=== PATIENT | female | born 1945 | race Caucasian/White ===

== ENCOUNTER 2017-01-23 10:20 | Emergency (ER) | payer SELFPAY ==
[2017-01-23 10:44] VITALS: BP 149/73
--- NOTE | 2017-01-23 10:56 | EDM.PDOC ---
[id number] [id number] WC: LEFT MIDDLE FINGER INJURY Time Seen by Provider: 01/23/17 10:45 Source: Reports: Patient, Family History Limitations: Reports: No limitations - History of Present Illness INITIAL COMMENTS - FREE TEXT/NARRATIVE: 71-year-old female with a right middle finger injury. Yesterday she accidentally dipped the tip of her finger in hot grease, but it was a gloved hand. She pulled her hand out quickly, snapped the glove off and ran her hand in cold water. Today her finger is ecchymotic and slightly swollen so her employer wanted it checked. It is not painful, there is no burn. Occurred When: yesterday Occurred Where: work Method of Injury: unknown Severity: mild Pain/Injury Location: Reports: upper extremity, right Associated Symptoms: Reports: denies other symptoms Allergies/ADRs: Allergies codeine Allergy (Verified 06/14/13 06:14) Airway Tightness procaine Allergy (Verified 09/16/14 13:57) Cannot Remember Home Medications: Ambulatory Orders Ca Cmb No.1/Vit D3/B-6/FA/B12 [Vitamin D3 1,000 Unit] 1 each PO DAILY 06/14/13 [ Confirmed 01/23/17] Estrogens, Conjugated [Premarin] 0.625 mg PO DAILY 06/14/13 [Confirmed 01/23/17] Hydrochlorothiazide [Hydrochlorothiazide] 25 mg PO DAILY 06/14/13 [Confirmed ] Multivitamin with Minerals [Multiple Vitamin] 1 tab PO DAILY 06/14/13 [ Confirmed 01/23/17] Omeprazole [Omeprazole] 20 mg PO DAILY 06/14/13 [Confirmed 01/23/17] PARoxetine HCl [Paroxetine HCl] 20 mg PO DAILY 06/14/13 [Confirmed 01/23/17] Simvastatin [Simvastatin] 40 mg PO DAILY 06/14/13 [Confirmed 01/23/17] Past Medical History - Past Health History Medical/Surgical History: Denies Medical/Surgical History 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 Trauma Exam - Physical Exam Exam: See Below Exam Limited By: No limitations General Appearance: Reports: alert, no apparent distress Head: Reports: atraumatic Respiratory Exam: Reports: no respiratory distress Extremities: Reports: other (Exam is otherwise limited to the right hand. She has some slight swelling and ecchymosis to the proximal aspect of the right middle finger, but full range of motion and no tenderness to palpation. Joints are nontender, there is no burn) Course - Vital Signs Last Recorded V/S: Last Vital Signs Temp 96.1 F 01/23/17 10:43 Pulse 76 01/23/17 10:43 Resp 15 01/23/17 10:43 BP 149/73 H 01/23/17 10:43 Pulse Ox 96 01/23/17 10:43 - Re-Assessments/Exams Free Text/Narrative Re-Assessment/Exam: 01/23/17 10:54 This patient simply has a contusion or hematoma under the skin likely from snapping her glove off rapidly. No treatment is needed. Departure - Departure Time of Disposition: 11:39 Disposition: Home, Self-Care 01 Condition: good Clinical Impression: Contusion of finger of right hand Qualifiers: Encounter type: initial encounter Finger: middle finger Damage to nail status: without damage Qualified Code(s): S60.031A - Contusion of right middle finger without damage to nail, initial encounter Instructions: Hand Contusion Referrals: Armand Garcia MD [Primary Care Provider] - Forms: ED Department Discharge Care Plan Goals: Elevate the hand and cool compresses may help, no limitation of activity as needed. Recheck at any time if you feel you are not healing satisfactorily.
== END 2017-01-23 11:10 | disposition home or self-care (01) ==
LOC: JP.ED 10:20
DX: S60.031A Contusion of right middle finger without damage to nail, initial encounter (principal); Z90.49 Acquired absence of other specified parts of digestive tract; Z90.710 Acquired absence of both cervix and uterus; Z90.5 Acquired absence of kidney; Z79.899 Other long term (current) drug therapy; Z88.5 Allergy status to narcotic agent; Z88.8 Allergy status to other drugs, medicaments and biological substances; X19.XXXA Contact with other heat and hot substances, initial encounter
CPT/HCPCS: 99282; 99283

== ENCOUNTER 2017-05-26 16:04 | Inpatient (IN) | payer MEDICARE ==
[2017-05-26] MEDS ORDERED: HYDROmorphone 0.5 MG/0.5 ML Syringe IVPUSH ONE (16:53)
--- NOTE | 2017-05-26 16:56 | EDM.PDOC ---
ED HPI GENERAL MEDICAL PROBLEM - General Chief Complaint: Abdominal Pain Stated Complaint: FEVER Time Seen by Provider: 05/26/17 16:45 Source of Information: Reports: Patient History Limitations: Reports: No Limitations - History of Present Illness INITIAL COMMENTS - FREE TEXT/NARRATIVE: 71 yo female with RLQ abdominal pain that began yesterday and has worsened. Bowels normal. No urinary sx's. No nausea. Still has her appendix. 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 (Aleve x 2 2 hrs ago.) Right Lower Abdomen Pain Score (Numeric/FACES): 3 - Related Data Allergies Allergy/AdvReac Type Severity Reaction Status Date / Time codeine Allergy Airway Verified 06/14/13 06:14 Tightness procaine Allergy Cannot Verified 09/16/14 13:57 Remember Home Meds: Home Meds Ca Cmb No.1/Vit D3/B-6/FA/B12 [Vitamin D3 1,000 Unit] 1 each PO DAILY 06/14/13 [ History] Estrogens, Conjugated [Premarin] 0.625 mg PO DAILY 06/14/13 [History] Hydrochlorothiazide [Hydrochlorothiazide] 25 mg PO DAILY 06/14/13 [History] Multivitamin with Minerals [Multiple Vitamin] 1 tab PO DAILY 06/14/13 [History] Omeprazole [Omeprazole] 20 mg PO DAILY 06/14/13 [History] PARoxetine HCl [Paroxetine HCl] 20 mg PO DAILY 06/14/13 [History] Simvastatin [Simvastatin] 40 mg PO DAILY 06/14/13 [History] Aspirin 81 mg PO DAILY 05/26/17 [History] Potassium Chloride 10 meq PO BID 05/26/17 [History] Past Medical History - Past Health History Medical/Surgical History: Denies Medical/Surgical History Cardiovascular History: Reports: Hypertension 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: - Infectious Disease History Infectious Disease History: Reports: Chicken Pox, Measles, Mumps - Past Surgical History GI Surgical History: Reports: Cholecystectomy Female Surgical History: Reports: Hysterectomy, Nephrectomy Social & Family History - Tobacco Use Smoking Status *Q: Never Smoker Second Hand Smoke Exposure: Yes - Caffeine Use Caffeine Use: Reports: Coffee - Alcohol Use Days Per Week of Alcohol Use: 0 - Recreational Drug Use Recreational Drug Use: No ED ROS GENERAL - Review of Systems Review Of Systems: See Below Constitutional: Reports: No Symptoms HEENT: Reports: No Symptoms Respiratory: Reports: No Symptoms Cardiovascular: Reports: No Symptoms Endocrine: Reports: No Symptoms GI/Abdominal: Reports: Abdominal Pain, Decreased Appetite. Denies: Black Stool , Bloody Stool, Constipation, Diarrhea, Distension, Hematochezia, Melena, Nausea , Vomiting : Reports: No Symptoms Musculoskeletal: Reports: No Symptoms Skin: Reports: No Symptoms Neurological: Reports: No Symptoms ED EXAM, GI/ABD - Physical Exam Exam: See Below Exam Limited By: No Limitations General Appearance: Alert, WD/WN, No Apparent Distress Eyes: Bilateral: Normal Appearance Ears: Normal External Exam, Normal Canal, Hearing Grossly Normal Nose: Normal Inspection, Normal Mucosa, No Blood Throat/Mouth: Normal Inspection, Normal Lips, Normal Oropharynx, Normal Voice Head: Atraumatic, Normocephalic Neck: Normal Inspection Respiratory/Chest: No Respiratory Distress, Lungs Clear, Normal Breath Sounds, No Accessory Muscle Use Cardiovascular: Regular Rate, Rhythm, No Edema GI/Abdominal Exam: No Distention, Guarding, Tender. No: Rebound Back Exam: Normal Inspection, Full Range of Motion. No: CVA Tenderness (R), CVA Tenderness (L) Extremities: Normal Inspection, Normal Range of Motion, Non-Tender, No Pedal Edema Neurological: Alert, Oriented, CN II-XII Intact, Normal Cognition, No Motor/ Sensory Deficits Psychiatric: Normal Affect, Normal Mood Skin Exam: Warm, Dry, Intact, Normal Color, No Rash Lymphatic: No Adenopathy Course - Vital Signs Text/Narrative:: Surgery notified @ 1800h Last Recorded V/S: Last Vital Signs Temp 36.1 C 05/26/17 16:35 Pulse 87 05/26/17 16:35 Resp 18 05/26/17 16:35 BP 134/80 05/26/17 16:35 Pulse Ox 94 L 05/26/17 16:35 - Orders/Labs/Meds Orders: Active Orders 24 hr Category Date Time Status Abdomen Pelvis w Cont [CT] Stat Exams 05/26/17 17:00 Ordered UA W/MICROSCOPIC [URIN] Stat Lab 05/26/17 17:49 Received Iopamidol [Isovue-300 (61%)] Med 05/26/17 17:06 Active 100 ml IV . DIRECTED PRN Lactated Ringers [Ringers, Lactated] 1,000 ml Med 05/26/17 17:00 Active IV ASDIRECTED Sodium Chloride 0.9% [Normal Saline] 78 ml Med 05/26/17 17:15 Active IV ASDIRECTED Medication Orders Lactated Ringer's (Ringers, Lactated) 1,000 mls @ 150 mls/hr IV ASDIRECTED APOORVA Last Admin: 05/26/17 17:13 Dose: 150 mls/hr Sodium Chloride (Normal Saline) 78 mls @ 3 mls/sec IV ASDIRECTED APOORVA Iopamidol (Isovue-300 (61%)) 100 ml IV . DIRECTED PRN PRN Reason: RADIOLOGY EXAM Stop: 05/27/17 17:07 Labs: Laboratory Tests 05/26/17 05/26/17 Range/Units 17:08 17:08 WBC 20.2 H (4.5-11.0) K/uL RBC 5.61 H (3.30-5.50) M/uL Hgb 15.7 H (12.0-15.0) g/dL Hct 46.5 (36.0-48.0) % MCV 83 (80-98) fL MCH 28 (27-31) pg MCHC 34 (32-36) % Plt Count 268 (150-400) K/uL Sodium 136 L (140-148) mmol/L Potassium 3.8 (3.6-5.2) mmol/L Chloride 96 L (100-108) mmol/L Carbon Dioxide 30 (21-32) mmol/L Anion Gap 13.8 (5.0-14.0) mmol/L BUN 12 (7-18) mg/dL Creatinine 1.3 H (0.6-1.0) mg/dL Est Cr Clr Drug Dosing 32.82 mL/min Estimated GFR (MDRD) 40 L (>60) Glucose 151 H (74-106) mg/dL Calcium 9.0 (8.5-10.1) mg/dL Total Bilirubin 0.8 (0.2-1.0) mg/dL AST 34 (15-37) U/L ALT 23 (12-78) U/L Alkaline Phosphatase 104 (46-116) U/L Total Protein 7.9 (6.4-8.2) g/dL Albumin 3.7 (3.4-5.0) g/dL Globulin 4.2 H (2.3-3.5) g/dL Albumin/Globulin Ratio 0.9 L (1.2-2.2) Meds: Medications Generic Name Dose Route Start Last Admin Trade Name Freq PRN Reason Stop Dose Admin Lactated Ringer's 1,000 mls @ 150 mls/hr 05/26/17 17:00 05/26/17 17:13 Ringers, Lactated IV 150 mls/hr ASDIRECTED APOORVA Administration Sodium Chloride 78 mls @ 3 mls/sec 05/26/17 17:15 Normal Saline IV ASDIRECTED APOORVA Iopamidol 100 ml 05/26/17 17:06 Isovue-300 (61%) IV 05/27/17 17:07 . DIRECTED PRN RADIOLOGY EXAM Discontinued Medications Generic Name Dose Route Start Last Admin Trade Name Freq PRN Reason Stop Dose Admin Hydromorphone HCl 0.5 mg 05/26/17 16:53 05/26/17 17:22 Dilaudid IVPUSH 05/26/17 16:54 0.5 mg ONETIME ONE Administration Ondansetron HCl 4 mg 05/26/17 17:14 05/26/17 17:19 Zofran IVPUSH 05/26/17 17:15 4 mg ONETIME ONE Administration Sodium Chloride 10 ml 05/26/17 17:06 05/26/17 17:22 Saline Flush FLUSH 05/26/17 17:07 10 ml ONETIME ONE Administration Departure - Departure Time of Disposition: 18:00 Disposition: Still A Patient 30 Condition: Fair (no cyanosis) Clinical Impression: RLQ abdominal pain - Discharge Information Referrals: Armand Garcia MD [Primary Care Provider] - Forms: ED Department Discharge - My Orders Last 24 Hours: My Active Orders 05/26/17 17:00 Abdomen Pelvis w Cont [CT] Stat Lactated Ringers [Ringers, Lactated] 1,000 ml IV ASDIRECTED 05/26/17 17:06 Iopamidol [Isovue-300 (61%)] 100 ml IV . DIRECTED PRN 05/26/17 17:15 Sodium Chloride 0.9% [Normal Saline] 78 ml IV ASDIRECTED 05/26/17 17:49 UA W/MICROSCOPIC [URIN] Stat - Assessment/Plan Last 24 Hours: My Active Orders 05/26/17 17:00 Abdomen Pelvis w Cont [CT] Stat Lactated Ringers [Ringers, Lactated] 1,000 ml IV ASDIRECTED 05/26/17 17:06 Iopamidol [Isovue-300 (61%)] 100 ml IV . DIRECTED PRN 05/26/17 17:15 Sodium Chloride 0.9% [Normal Saline] 78 ml IV ASDIRECTED 05/26/17 17:49 UA W/MICROSCOPIC [URIN] Stat
[2017-05-26] MEDS ORDERED: Lactated Ringers 1,000 ML IV SCH ×2 (17:00→21:15)
[2017-05-26] MEDS ORDERED: Iopamidol 612 MG/ML 100 ML Bottle IV PRN (17:06)
[2017-05-26] MEDS ORDERED: Ondansetron 4 MG/2 ML SDV IVPUSH ONE (17:14)
[2017-05-26] MEDS: Sodium Chloride 0.9% 10 ML Syringe FLUSH ONE ×2 (17:22→18:50)
[2017-05-26] MEDS ORDERED: Lactated Ringers 1,000 ML IV ONE (17:57)
[2017-05-26] MEDS ORDERED: Scopolamine 1.5 MG Transdermal Patch TRDERM PRN (21:29)
[2017-05-26] MEDS ORDERED: Promethazine 12.5 MG in Sodium Chloride 0.9% 50 ML IV PRN (21:31)
[2017-05-26] MEDS ORDERED: diphenhydrAMINE 50 MG/ML SDV IVPUSH PRN (21:35)
[2017-05-26] MEDS ORDERED: Morphine 2 MG/ML Syringe IVPUSH PRN (21:38)
[2017-05-26] MEDS ORDERED: fentaNYL 100 MCG/2 ML SDV IVPUSH PRN (21:39)
[2017-05-26] MEDS: Sodium Chloride 0.9% 1,000 ML IV SCH (22:23)
[2017-05-26] MEDS: Piperacillin/Tazobactam 4.5 GM in Sodium Chloride 0.9% 100 ML IV SCH (22:58)
[2017-05-27] MEDS: Sodium Chloride 0.9% 1,000 ML IV SCH (05:59)
[2017-05-27] MEDS: Piperacillin/Tazobactam 4.5 GM in Sodium Chloride 0.9% 100 ML IV SCH (06:41)
[2017-05-27] MEDS ORDERED: Potassium Chloride 20 MEQ in Premix Bag 1 BAG IV SCH (08:00)
[2017-05-27] MEDS ORDERED: Dexamethasone 4 MG/ML SDV ONE (08:47)
[2017-05-27] MEDS ORDERED: Ondansetron 4 MG/2 ML SDV ONE (08:47)
[2017-05-27] MEDS ORDERED: Neostigmine Methylsulfate 1 MG/ML 5 ML Syringe ONE (08:47)
[2017-05-27] MEDS ORDERED: Succinylcholine 200 MG/10 ML MDV ONE (08:47)
[2017-05-27] MEDS ORDERED: Propofol 200 MG/20 ML SDV ONE (08:47)
[2017-05-27] MEDS ORDERED: Glycopyrrolate 0.2 MG/ML 5 ML MDV ONE (08:47)
[2017-05-27] MEDS ORDERED: Rocuronium 50 MG/5 ML Vial ONE (08:47)
[2017-05-27] MEDS: Potassium Chloride 20 MEQ, Lidocaine 1% 2 ML in Sodium Chloride 0.9% 100 ML IV SCH ×3 (08:51→17:49)
[2017-05-27] MEDS: SCOPOLAMINE PATCH CHECK TOP SCH (11:31)
[2017-05-27] MEDS ORDERED: Lidocaine 1% with EPINEPHrine 1:100,000 50 ML MDV ONE (11:31)
[2017-05-27] MEDS ORDERED: Bupivacaine 0.5% 50 ML MDV ONE (11:31)
[2017-05-27] MEDS ORDERED: cefOXitin 2 GM Vial ONE (11:32)
[2017-05-27] MEDS ORDERED: Lactated Ringers 1,000 ML ONE (11:44)
[2017-05-27] MEDS ORDERED: hydrOXYzine HCl 100 MG/2 ML SDV IM PRN (12:21)
[2017-05-27] MEDS ORDERED: D5 1/2 NS w/ 20 mEq/L KCl 1,000 ML IV SCH ×4 (12:45→22:00)
[2017-05-27] MEDS: Ondansetron 4 MG/2 ML SDV IVPUSH PRN ×2 (13:02→22:03)
[2017-05-27] MEDS ORDERED: LORazepam 2 MG/ML MDV ONE (13:27)
[2017-05-27] MEDS: LORazepam 2 MG/ML MDV IVPUSH PRN ×2 (13:29→16:16)
[2017-05-27] MEDS: Piperacillin/Tazobactam/Dext 4.5 GM in Premix Bag 1 BAG IV SCH ×2 (14:30→21:26)
[2017-05-27] MEDS ORDERED: Lactated Ringers 500 ML IV ONE (17:15)
[2017-05-28] MEDS: Piperacillin/Tazobactam/Dext 4.5 GM in Premix Bag 1 BAG IV SCH ×3 (05:44→21:05)
[2017-05-28] MEDS: Ondansetron 4 MG/2 ML SDV IVPUSH PRN ×2 (05:44→13:33)
[2017-05-28] MEDS ORDERED: D5 1/2 NS w/ 20 mEq/L KCl 1,000 ML IV SCH (07:15)
[2017-05-28] MEDS: SCOPOLAMINE PATCH CHECK TOP SCH (13:48)
[2017-05-28] MEDS ORDERED: Ondansetron 4 MG Tab.DIS PO PRN (18:24)
[2017-05-28] MEDS ORDERED: Simvastatin 20 MG Tab PO SCH (21:00)
[2017-05-28] MEDS: PARoxetine 20 MG Tab PO SCH (21:06)
[2017-05-29] MEDS: Piperacillin/Tazobactam/Dext 4.5 GM in Premix Bag 1 BAG IV SCH (05:58)
[2017-05-29 07:47] VITALS: BP 154/88
[2017-05-29] MEDS: PARoxetine 20 MG Tab PO SCH (08:56)
[2017-05-29] MEDS: SCOPOLAMINE PATCH CHECK TOP SCH (08:56)
[2017-05-29] MEDS ORDERED: Potassium Chloride 10 MEQ Cap.ER PO SCH (09:00)
[2017-05-29] MEDS ORDERED: Aspirin 81 MG Tab.EC PO SCH ×2 (09:00→21:00)
[2017-05-29] MEDS ORDERED: Hydrochlorothiazide 25 MG Tab PO SCH (09:00)
--- NOTE | 2017-05-29 11:31 | PN ---
DATE OF SERVICE: 05/29/2017 SUBJECTIVE: The patient is doing well. Pain is well controlled. No nausea, vomiting, shortness of breath, or chest pain. OBJECTIVE: VITAL SIGNS: Temperature 98.7, blood pressure 154/88, respirations 16, and 92% on room air. CARDIOVASCULAR: Regular rhythm and rate. RESPIRATORY: Lungs clear to auscultation bilaterally. ABDOMEN: Bowel sounds positive. EXTREMITIES: Full range of motion. Incision healing well. ASSESSMENT: Status post appendectomy. PLAN: The patient will be discharged today. We discussed diet, activity, followup, signs and symptoms, complications, and the role of the emergency room. The patient was discharged with Augmentin for antibiotics and [place] for pain. Rufino Dawkins MD /[id number]
[2017-05-29] MEDS ORDERED: PARoxetine 20 MG Tab PO SCH (21:00)
--- NOTE | 2017-05-30 08:24 | OR ---
DATE OF PROCEDURE: 05/27/2017 PREOPERATIVE DIAGNOSIS: Acute appendicitis. POSTOPERATIVE DIAGNOSIS: Acute perforated appendicitis. PROCEDURE: Laparoscopic appendectomy. ANESTHESIA: General endotracheal. INDICATIONS: This 71-year-old white female tells me that yesterday she noted onset of abdominal pain and it was in the right lower quadrant. This was severe enough that it caused her to come into the emergency room last night. She was found to be tender in the right lower quadrant. She was afebrile at that time, but did develop a fever of 100.7. Her white count was in the 20,000 range. CAT scan of the abdomen and pelvis was consistent with acute nonperforated appendicitis. She was admitted, given IV antibiotic. She wanted me to do her surgery, so I counseled her for a laparoscopic appendectomy including risks and alternatives, and she gave her informed consent to proceed. DESCRIPTION OF PROCEDURE: After adequate general endotracheal anesthesia was obtained, a Man catheter was placed. Her abdomen was prepped and draped in the usual sterile fashion. The leg compression stockings were in place and used during the entire procedure. Time-out was held. An infraumbilical semicircular incision was made. Under direct vision, a 12-mm port was introduced in the abdomen through this incision. The camera was introduced into the abdomen and the abdomen was insufflated to a pressure of 20 mmHg with carbon dioxide. No evidence of intraabdominal injury was seen. Under direct vision, 12-mm ports were placed in the right upper and left lower quadrants. There were some adhesions to the anterior abdominal wall from her prior multiple surgeries. These were bluntly and sharply dissected free. We were then able to reach the right lower quadrant. There was small bowel adherent in this area. This was carefully dissected free to reveal a walled-off perforated appendicitis. Some tyson-colored material was obtained which was aspirated free. The base of the appendix was divided with the endoscopic TESS using a blue load. The mesoappendix was divided with the endoscopic TESS using a white load. The appendix was then placed in a sample retrieval bag and elevated up through the anterior abdominal wall via the right upper quadrant port site. It was delivered from the field. There was some necrotic tissue in the right lower quadrant which was sharply dissected free and removed. All then looked well. We did irrigate the right lower quadrant and suction it dry. No other abnormalities were noted. The fascial closure device was used to place 0 Vicryl stitches in the right upper and left lower quadrant fascial defects. These were not both tied down until they were both placed, they were then tied down. The infraumbilical port was removed with a [id number] stitch of 0 Vicryl and used to close this fascial defect. Before tieing it down, we tried to evacuate as much CO2 as we could from the abdomen. This was then tied down. Lidocaine 1% with epinephrine in a 50:50 mix with 0.5% Marcaine was infiltrated about all incisions. 4-0 Vicryl using a subcuticular stitch was placed to approximate the skin in the incisions. Dermabond was applied. The anesthesia was reversed. She was extubated and brought to recovery room in good condition. Vazquez Hand MD /[id number] MTDD
--- NOTE | 2017-06-02 09:27 | PN ---
DATE OF SERVICE: 05/28/2017 SUBJECTIVE: The patient is doing well. Pain is well controlled. No nausea, vomiting, shortness of breath, or chest pain. OBJECTIVE: VITAL SIGNS: Stable. CARDIOVASCULAR: Regular rhythm and rate. RESPIRATORY: Lungs clear to consultation bilaterally. ABDOMEN: Incisions, no sign of cellulitis. LABORATORY DATA: Show elevated white count of 17,000. ASSESSMENT: Status post appendectomy. PLAN: We will continue IV antibiotics at this time. Continue to work on diet and activity. Rufino Dawkins MD /[id number]
--- NOTE | 2017-06-03 09:22 | PCM.DCSUM1 ---
Discharge Summary - Hospital Course Free Text/Narrative:: This 71 year old white female was admitted on the evening of May 26, 2017 with less than 24 hours of abdominal pain and acute appendicitis. She was taken to the OR on the morning of May 27, 2017 where when dissecting the bowel of the appendix it was noted to be perforated (the bowel had sealed off the appendix). The was on Zosyn which was continued post operatively. No drain was placed. By the second post operative day she was afebrile, eating and wanted to go home. Her WBC was down to about 12 K from 20K. She was discharged home on the second post operative day on Augmentin. Pathology showed perforation and a sessile serrated adenoma at the proximal margin of the resection. Brief History: See above narrative. - Discharge Data Discharge Date: 05/29/17 Discharge Disposition: Home, Self-Care 01 Condition: Good - Patient Instructions Diet: Usual Diet as Tolerated Activity: No Lifting Over 10 Pounds Showering/Bathing: January Shower Notify Provider of: Fever, Increased Pain, Swelling and Redness, Drainage, Nausea and/or Vomiting - Discharge Plan Home Medications: Home Meds Ca Cmb No.1/Vit D3/B-6/FA/B12 [Vitamin D3 1,000 Unit] 1 each PO DAILY 06/14/13 [ History] Estrogens, Conjugated [Premarin] 0.625 mg PO DAILY 06/14/13 [History] Hydrochlorothiazide [Hydrochlorothiazide] 25 mg PO DAILY 06/14/13 [History] Multivitamin with Minerals [Multiple Vitamin] 1 tab PO DAILY 06/14/13 [History] Omeprazole [Omeprazole] 20 mg PO DAILY 06/14/13 [History] PARoxetine HCl [Paroxetine HCl] 20 mg PO DAILY 06/14/13 [History] Simvastatin [Simvastatin] 40 mg PO DAILY 06/14/13 [History] Aspirin 81 mg PO DAILY 05/26/17 [History] Potassium Chloride 10 meq PO BID 05/26/17 [History] Forms: ED Department Discharge Referrals: Armand Garica MD [Primary Care Provider] - ([facility] 7-14 days) - Discharge Summary/Plan Comment DC Time >30 min.: Yes Discharge Summary/Plan Comment: See above narrative. - Patient Data Vitals - Most Recent: Last Vital Signs Temp 98.7 F 05/29/17 07:00 Pulse 79 05/29/17 07:00 Resp 16 05/29/17 07:00 BP 154/88 H 05/29/17 07:00 Pulse Ox 92 L 05/29/17 07:00 Weight - Most Recent: 162 lb 4.163 oz Med Orders - Current: Current Medications Discontinued Medications Aspirin (Halfprin) 81 mg PO DAILY [facility] Last Admin: 05/29/17 08:56 Dose: Not Given Aspirin (Halfprin) 81 mg PO BEDTIME [facility] Bupivacaine HCl (Marcaine 0.5%) Confirm Administered Dose 50 ml .ROUTE .STK-MED ONE Stop: 05/27/17 11:32 Last Admin: 05/27/17 11:50 Dose: 10 ml Cefoxitin Sodium (Mefoxin) Confirm Administered Dose 2 gm .ROUTE .STK-MED ONE Stop: 05/27/17 11:33 Dexamethasone (Dexamethasone) Confirm Administered Dose 4 mg .ROUTE .STK-MED ONE Stop: 05/27/17 08:48 Diphenhydramine HCl (Benadryl) 25 - 50 mg IVPUSH Q4H PRN PRN Reason: Itching Fentanyl (Sublimaze) 10 - 30 mcg IVPUSH Q1H PRN PRN Reason: Pain (severe 7-10) Fentanyl Citrate (Fentanyl) Confirm Administered Dose 500 mcg .ROUTE .STK-MED ONE Stop: 05/27/17 08:48 Glycopyrrolate (Robinul) Confirm Administered Dose 1 mg .ROUTE .STK-MED ONE Stop: 05/27/17 08:48 Hydrochlorothiazide (Hydrochlorothiazide) 25 mg PO DAILY [facility] Last Admin: 05/29/17 08:52 Dose: 25 mg Hydromorphone HCl (Dilaudid) 0.5 mg IVPUSH ONETIME ONE Stop: 05/26/17 16:54 Last Admin: 05/26/17 17:22 Dose: 0.5 mg Hydroxyzine HCl (Vistaril) 50 mg IM Q4H PRN PRN Reason: Nausea Lactated Ringer's (Ringers, Lactated) 1,000 mls @ 150 mls/hr IV ASDIRECTED [facility] Last Admin: 05/26/17 17:13 Dose: 150 mls/hr Sodium Chloride (Normal Saline) 78 mls @ 3 mls/sec IV ASDIRECTED [facility] Last Admin: 05/26/17 18:49 Dose: 3 mls/sec Lactated Ringer's (Ringers, Lactated) 1,000 mls @ 1,000 mls/hr IV BOLUS ONE Stop: 05/26/17 18:56 Last Admin: 05/26/17 18:07 Dose: 1,000 mls/hr Lactated Ringer's (Ringers, Lactated) 1,000 mls @ 250 mls/hr IV ASDIRECTED [facility] Sodium Chloride (Normal Saline) 1,000 mls @ 125 mls/hr IV ASDIRECTED [facility] Last Admin: 05/27/17 05:59 Dose: 125 mls/hr Promethazine HCl 12.5 mg/ (Sodium Chloride) 50.5 mls @ 200 mls/hr IV Q8H PRN PRN Reason: Nausea/Vomiting Piperacillin Sod/Tazobactam (Sod 4.5 gm/ Sodium Chloride) 100 mls @ 200 mls/hr IV Q8H [facility] Last Admin: 05/27/17 06:41 Dose: 200 mls/hr Piperacillin/Tazobactam/ (Dextrose 4.5 gm/ Premix) 100 mls @ 200 mls/hr IV Q8H [facility] Last Admin: 05/29/17 05:58 Dose: 200 mls/hr Potassium Chloride 20 meq/Lidocaine HCl 2 ml/ Sodium Chloride 112 mls @ 56 mls/ hr IV Q2H [facility] Stop: 05/27/17 14:59 Last Admin: 05/27/17 17:49 Dose: 56 mls/hr Lactated Ringer's (Ringers, Lactated) Confirm Administered Dose 1,000 mls @ as directed .ROUTE .STK-MED ONE Stop: 05/27/17 11:45 Potassium Chloride/Dextrose/Sod Cl (D5 1/2 Ns W/ 20 Meq/L Kcl) 1,000 mls @ 125 mls/hr IV ASDIRECTED [facility] Last Infusion: 05/27/17 17:28 Dose: 250 mls/hr Potassium Chloride/Dextrose/Sod Cl (D5 1/2 Ns W/ 20 Meq/L Kcl) 1,000 mls @ 250 mls/hr IV ASDIRECTED [facility] Stop: 05/27/17 22:00 Potassium Chloride/Dextrose/Sod Cl (D5 1/2 Ns W/ 20 Meq/L Kcl) 1,000 mls @ 125 mls/hr IV ASDIRECTED [facility] Stop: 05/28/17 04:00 Last Admin: 05/27/17 22:14 Dose: 125 mls/hr Lactated Ringer's (Ringers, Lactated) 500 mls @ 500 mls/hr IV BOLUS ONE Stop: 05/27/17 18:14 Last Admin: 05/27/17 17:28 Dose: 500 mls/hr Potassium Chloride/Dextrose/Sod Cl (D5 1/2 Ns W/ 20 Meq/L Kcl) 1,000 mls @ 250 mls/hr IV ASDIRECTED [facility] Stop: 05/27/17 22:00 Last Admin: 05/27/17 20:38 Dose: 250 mls/hr Potassium Chloride/Dextrose/Sod Cl (D5 1/2 Ns W/ 20 Meq/L Kcl) 1,000 mls @ 125 mls/hr IV ASDIRECTED [facility] Iopamidol (Isovue-300 (61%)) 100 ml IV . DIRECTED PRN PRN Reason: RADIOLOGY EXAM Stop: 05/27/17 17:07 Last Admin: 05/26/17 18:49 Dose: 100 ml Lidocaine/Epinephrine (Xylocaine 1% With Epinephrine 1:100,000) Confirm Administered Dose 50 ml .ROUTE .STK-MED ONE Stop: 05/27/17 11:32 Last Admin: 05/27/17 11:50 Dose: 10 ml Lorazepam (Ativan) 1 mg IVPUSH Q1H PRN PRN Reason: Anxiety Last Admin: 05/27/17 16:16 Dose: 1 mg Lorazepam (Ativan) Confirm Administered Dose 2 mg .ROUTE .STK-MED ONE Stop: 05/27/17 13:28 Last Admin: 05/27/17 14:07 Dose: Not Given Morphine Sulfate (Morphine) 1 - 3 mg IVPUSH Q1H PRN PRN Reason: Pain Neostigmine Methylsulfate (Neostigmine) Confirm Administered Dose 5 mg .ROUTE .STK-MED ONE Stop: 05/27/17 08:48 Scopolamine Patch (Check) 1 each TOP DAILY [facility] Last Admin: 05/29/17 08:56 Dose: Not Given Ondansetron HCl (Zofran) 4 mg IVPUSH ONETIME ONE Stop: 05/26/17 17:15 Last Admin: 05/26/17 17:19 Dose: 4 mg Ondansetron HCl (Zofran) 4 mg IVPUSH Q8H PRN PRN Reason: Nausea/Vomiting Last Admin: 05/28/17 13:33 Dose: 4 mg Ondansetron HCl (Zofran) Confirm Administered Dose 4 mg .ROUTE .STK-MED ONE Stop: 05/27/17 08:48 Ondansetron HCl (Zofran Odt) 4 mg PO Q4H PRN PRN Reason: Nausea/Vomiting Last Admin: 05/28/17 21:55 Dose: 4 mg Paroxetine HCl (Paxil) 20 mg PO DAILY [facility] Last Admin: 05/29/17 08:56 Dose: Not Given Paroxetine HCl (Paxil) 20 mg PO BEDTIME [facility] Potassium Chloride (Potassium Chloride) 10 meq PO BID [facility] Last Admin: 05/29/17 08:52 Dose: 10 meq Propofol (Diprivan 20 Ml) Confirm Administered Dose 200 mg .ROUTE .STK-MED ONE Stop: 05/27/17 08:48 Rocuronium [place] (Zemuron) Confirm Administered Dose 50 mg .ROUTE .STK-MED ONE Stop: 05/27/17 08:48 Scopolamine (Transderm-Scop) 1.5 mg TRDERM Q72H PRN PRN Reason: Nausea Simvastatin (Zocor) 40 mg PO BEDTIME [facility] Last Admin: 05/28/17 21:06 Dose: 40 mg Sodium Chloride (Saline Flush) 10 ml FLUSH ONETIME ONE Stop: 05/26/17 17:07 Last Admin: 05/26/17 18:50 Dose: 10 ml Sodium Chloride (Normal Saline) 1,000 ml IRR .STK-MED ONE Stop: 05/27/17 12:12 Last Admin: 05/27/17 12:11 Dose: 1,000 ml Succinylcholine Chloride (Quelicin) Confirm Administered Dose 200 mg .ROUTE .STK -MED ONE Stop: 05/27/17 08:48 *Q Meaningful Use (DIS) - VTE *Q VTE Criteria *Q: - Stroke *Q Stroke Criteria *Q: - AMI *Q AMI Criteria *Q:
== END 2017-05-29 10:30 | disposition home or self-care (01) | DRG 340 ==
LOC: JP.ED 16:04 → JP.MS 21:11
PROVIDERS: ADMIT Surgery; ATTEND Surgery
PROC: 0DTJ4ZZ Resection of Appendix, Percutaneous Endoscopic Approach (ICD-10-PCS; principal; 2017-05-27)
DX: K35.2 Acute appendicitis with generalized peritonitis (principal); I10 Essential (primary) hypertension; R10.31 Right lower quadrant pain; R50.9 Fever, unspecified; Z88.5 Allergy status to narcotic agent; Z79.82 Long term (current) use of aspirin
CPT/HCPCS: 36415; 74177; 80053; 81001; 85027; 96361; 96374; 96375; 99285; J1170; J2405; J7030; J7050 ×2; J7120 ×2; Q9967; 80048; 85025; 88304; 94762; 99283; A9270-GY; J0330; J0694; J1100; J2060; J2543; J2704; J2710; J3010; J3480; J7040

== ENCOUNTER 2017-08-12 06:41 | Day surgery (SDC) | payer MEDICARE ==
[2017-08-12] MEDS ORDERED: Lactated Ringers 1,000 ML IV SCH (07:00)
[2017-08-12] MEDS ORDERED: Ondansetron 4 MG/2 ML SDV ONE (07:26)
[2017-08-12] MEDS ORDERED: Propofol 200 MG/20 ML SDV ONE (07:26)
[2017-08-12] MEDS ORDERED: fentaNYL 100 MCG/2 ML SDV ONE (07:26)
[2017-08-12] MEDS ORDERED: Midazolam 1 MG/ML 2 ML SDV ONE (07:26)
[2017-08-12 08:44] VITALS: BP 118/67
--- NOTE | 2017-08-12 09:43 | OR ---
DATE OF PROCEDURE: 08/12/2017 PREOPERATIVE DIAGNOSES: History of tubular adenoma, history in May 2017 of appendectomy with sessile serrated adenoma at margin. POSTOPERATIVE DIAGNOSES: Unremarkable colonoscopy, history of tubular adenoma, history in May 2017 of appendectomy with sessile serrated adenoma at margin. PROCEDURE PERFORMED: Colonoscopy to the cecum. SURGEON: Vazquez Hand MD. ANESTHESIA: IV anesthesia with monitored anesthesia care. INDICATIONS: This 71-year-old white female, in May of this year, underwent a laparoscopic appendectomy for acute and what turned out to be perforated appendicitis. Pathology returned with a sessile serrated adenoma in the appendix, which involved the margin. She has a history in the remote past of tubular adenomas. Her last colonoscopy was in 2013. I counseled her for a colonoscopy with possible biopsy and/or polypectomy, including risks and alternatives, and she gave her informed consent to proceed. DESCRIPTION OF PROCEDURE: The patient was placed in the left lateral decubitus position. IV anesthesia was administered by the Anesthesia Service. Time-out was held. A rectal exam was performed, which was unremarkable. The flexible video Olympus colonoscope was introduced through her anus, up her rectum, and out her colon, all the way to the cecum. The appendiceal orifice was examined and we could see no evidence of the sessile serrated adenoma. The scope was then slowly withdrawn, examining the mucosa throughout, no mucosal abnormalities were noted. The scope was retroflexed in the rectum with the distal rectum appearing unremarkable. The scope was straightened and removed. She tolerated the procedure well. We will plan on a cecectomy. Vazquez Hand MD /[id number] MTDD
== END 2017-08-12 09:10 | disposition home or self-care (01) ==
LOC: JP.SDS 06:41
PROVIDERS: ATTEND Surgery
DX: Z12.11 Encounter for screening for malignant neoplasm of colon (principal); I12.9 Hypertensive chronic kidney disease with stage 1 through stage 4 chronic kidney disease, or unspecified chronic kidney disease; N18.9 Chronic kidney disease, unspecified; K21.9 Gastro-esophageal reflux disease without esophagitis; F41.9 Anxiety disorder, unspecified; Z85.038 Personal history of other malignant neoplasm of large intestine; Z88.1 Allergy status to other antibiotic agents; Z88.8 Allergy status to other drugs, medicaments and biological substances; Z90.49 Acquired absence of other specified parts of digestive tract; Z98.890 Other specified postprocedural states; Z98.51 Tubal ligation status; Z90.710 Acquired absence of both cervix and uterus
CPT/HCPCS: 45378; J2250; J2405; J2704; J3010; J7120

== ENCOUNTER 2017-09-30 08:07 | Inpatient (IN) | payer MEDICARE ==
[2017-09-30] MEDS: Dextrose 5%-Lactated Ringers 1,000 ML IV SCH ×3 (08:42→23:27)
[2017-09-30] MEDS ORDERED: Piperacillin/Tazobactam/Dext 4.5 GM in Premix Bag 1 BAG IV ONE (09:15)
[2017-09-30] MEDS ORDERED: Lidocaine 1% with EPINEPHrine 1:100,000 50 ML MDV ONE (09:52)
[2017-09-30] MEDS ORDERED: Bupivacaine 0.5% 50 ML MDV ONE (09:52)
[2017-09-30] MEDS ORDERED: fentaNYL 250 MCG/5 ML SDV ONE (09:59)
[2017-09-30] MEDS ORDERED: Neostigmine Methylsulfate 1 MG/ML 5 ML Syringe ONE (10:00)
[2017-09-30] MEDS ORDERED: Dexamethasone 4 MG/ML SDV ONE (10:00)
[2017-09-30] MEDS ORDERED: Rocuronium 50 MG/5 ML Vial ONE (10:00)
[2017-09-30] MEDS ORDERED: Ondansetron 4 MG/2 ML SDV ONE (10:00)
[2017-09-30] MEDS ORDERED: Propofol 200 MG/20 ML SDV ONE (10:00)
[2017-09-30] MEDS ORDERED: Glycopyrrolate 0.2 MG/ML 5 ML MDV ONE (10:00)
[2017-09-30] MEDS ORDERED: Lactated Ringers 1,000 ML IV SCH (11:15)
[2017-09-30] MEDS: Ondansetron 4 MG/2 ML SDV IVPUSH PRN ×2 (12:22→18:13)
[2017-09-30] MEDS ORDERED: HYDROmorphone 0.5 MG/0.5 ML Syringe IVPUSH PRN (13:28)
[2017-09-30] MEDS: PARoxetine 20 MG Tab PO SCH (13:36)
[2017-09-30] MEDS: Pantoprazole 40 MG Vial IVPUSH SCH (13:37)
[2017-10-01 07:12] VITALS: BP 70/49
[2017-10-01] MEDS: PARoxetine 20 MG Tab PO SCH (08:48)
[2017-10-01] MEDS: Pantoprazole 40 MG Vial IVPUSH SCH (08:49)
--- NOTE | 2017-10-01 09:26 | PCM.DCSUM1 ---
Discharge Summary - Hospital Course Free Text/Narrative:: In May of this year this 72 year old white female presented with acute perforated appendicitis. She underwent a laparoscopic appendectomy and did well. pathology returned a serrated adenoma at the appendiceal margin. Follow up colonoscopy showed the polyp was not visible in the appendiceal orifice. She was admitted yesterday and underwent a laparoscopic cecectomy. Her prior staple line was entirely removed with the specimen. Her post operative recovery was unremarkable. She required no pain medication. She currently is eating a regular diet and wants to go home. She is discharged at this time in good condition. - Discharge Data Discharge Date: 10/01/17 Discharge Disposition: Home, Self-Care 01 Condition: Good - Discharge Diagnosis/Problem(s) (1) Adenoma of appendix SNOMED Code(s): 12743889 ICD Code: D12.1 - BENIGN NEOPLASM OF APPENDIX Status: Acute Current Visit : Yes - Patient Summary/Data Consults: Consultations 09/30/17 09:04 Consult to Bottle Sorter [CONS] Routine Comment: Physician Instructions: 09/30/17 11:10 Respiratory Care Assess and Treatment [CONS] Routine Comment: Physician Instructions: - Patient Instructions Diet: Usual Diet as Tolerated Activity: No Lifting Over 10 Pounds (For two weeks. ), No Strenuous Activities ( Avoid activity that causes discomfort. ) Driving: Do Not Drive (January drive Tuesday) Showering/Bathing: May Shower Notify Provider of: Fever, Increased Pain, Swelling and Redness, Drainage, Nausea and/or Vomiting - Discharge Plan Prescriptions/Med Rec: HYDROmorphone [Dilaudid] 2 mg PO Q4H #30 tablet Home Medications: Home Meds Ca Cmb No.1/Vit D3/B-6/FA/B12 [Vitamin D3 1,000 Unit] 1 each PO DAILY 06/14/13 [ History] Estrogens, Conjugated [Premarin] 0.625 mg PO DAILY 06/14/13 [History] Hydrochlorothiazide 25 mg PO DAILY 06/14/13 [History] Multivitamin with Minerals [Multiple Vitamin] 1 tab PO DAILY 06/14/13 [History] Omeprazole 20 mg PO DAILY 06/14/13 [History] PARoxetine HCl [Paroxetine HCl] 10 mg PO DAILY 06/14/13 [History] Simvastatin 40 mg PO DAILY 06/14/13 [History] Potassium Chloride 20 meq PO BID 05/26/17 [History] Estradiol [Estrace] 0.5 mg PO DAILY 09/28/17 [History] L.acidoph,Paracasei, B.lactis [Probiotic] 1 tab PO DAILY 09/28/17 [History] HYDROmorphone [Dilaudid] 2 mg PO Q4H #30 tablet 10/01/17 [Rx] - Discharge Summary/Plan Comment DC Time >30 min.: Yes - General Info Date of Service: 10/01/17 Admission Dx/Problem (Free Text: Serrated adenoma at appendiceal stump margin. Functional Status: Reports: Pain Controlled, Tolerating Diet, Ambulating, Urinating, Incentive Spirometry - Review of Systems General: Reports: No Symptoms HEENT: Reports: No Symptoms Pulmonary: Reports: No Symptoms Cardiovascular: Reports: No Symptoms Gastrointestinal: Reports: No Symptoms Genitourinary: Reports: No Symptoms Musculoskeletal: Reports: No Symptoms Skin: Reports: No Symptoms Neurological: Reports: No Symptoms Psychiatric: Reports: No Symptoms - Patient Data Vitals - Most Recent: Last Vital Signs Temp 97.3 F 10/01/17 07:00 Pulse 68 10/01/17 07:00 Resp 18 10/01/17 07:00 BP 70/49 L 10/01/17 07:00 Pulse Ox 96 10/01/17 07:00 Weight - Most Recent: 150 lb I&O - Last 24 hours: Intake & Output 09/30/17 10/01/17 10/01/17 22:59 06:59 14:59 Intake Total 820 1481 636 Output Total 650 500 Balance 170 981 636 Lab Results - Last 24 hrs: Laboratory Results - last 24 hr 10/01/17 10/01/17 Range/Units 05:11 06:00 WBC 9.8 (4.5-11.0) K/uL RBC 5.05 (3.30-5.50) M/uL Hgb 14.1 D (12.0-15.0) g/dL Hct 42.3 (36.0-48.0) % MCV 84 (80-98) fL MCH 28 (27-31) pg MCHC 33 (32-36) % Plt Count 210 (150-400) K/uL Sodium 139 L (140-148) mmol/L Potassium 3.4 L (3.6-5.2) mmol/L Chloride 102 (100-108) mmol/L Carbon Dioxide 30 (21-32) mmol/L Anion Gap 10.4 (5.0-14.0) mmol/L BUN 9 (7-18) mg/dL Creatinine 0.9 (0.6-1.0) mg/dL Est Cr Clr Drug Dosing 46.74 mL/min Estimated GFR (MDRD) > 60 (>60) Glucose 123 H (74-106) mg/dL Calcium 8.3 L (8.5-10.1) mg/dL Med Orders - Current: Current Medications Hydromorphone HCl (Dilaudid) 0.3 mg IVPUSH Q10M PRN PRN Reason: PAIN Dextrose/Lactated Ringer's (Dextrose 5%-Lactated Ringers) 1,000 mls @ 100 mls/ hr IV ASDIRECTED [facility] Last Admin: 09/30/17 23:27 Dose: 100 mls/hr Lactated Ringer's (Ringers, Lactated) 1,000 mls @ 125 mls/hr IV ASDIRECTED [facility] Last Admin: 10/01/17 03:28 Dose: 125 mls/hr Ondansetron HCl (Zofran) 4 mg IVPUSH Q6H PRN PRN Reason: Nausea/Vomiting Last Admin: 09/30/17 18:13 Dose: 4 mg Pantoprazole Sodium (Protonix Iv) 40 mg IVPUSH DAILY [facility] Last Admin: 10/01/17 08:49 Dose: 40 mg Paroxetine HCl (Paxil) 10 mg PO DAILY [facility] Last Admin: 10/01/17 08:48 Dose: 10 mg Discontinued Medications Bupivacaine HCl (Marcaine 0.5%) Confirm Administered Dose 50 ml .ROUTE .STK-MED ONE Stop: 09/30/17 09:53 Last Admin: 09/30/17 10:45 Dose: 20 ml Dexamethasone (Dexamethasone) Confirm Administered Dose 4 mg .ROUTE .STK-MED ONE Stop: 09/30/17 10:01 Fentanyl (Sublimaze) Confirm Administered Dose 250 mcg .ROUTE .STK-MED ONE Stop: 09/30/17 10:00 Glycopyrrolate (Robinul) Confirm Administered Dose 1 mg .ROUTE .STK-MED ONE Stop: 09/30/17 10:01 Piperacillin/Tazobactam/ (Dextrose 4.5 gm/ Premix) 100 mls @ 200 mls/hr IV ONETIME ONE Stop: 09/30/17 09:44 Last Admin: 09/30/17 10:00 Dose: 200 mls/hr Lidocaine/Epinephrine (Xylocaine 1% With Epinephrine 1:100,000) Confirm Administered Dose 50 ml .ROUTE .STK-MED ONE Stop: 09/30/17 09:53 Last Admin: 09/30/17 10:45 Dose: 20 ml Neostigmine Methylsulfate (Neostigmine) Confirm Administered Dose 5 mg .ROUTE .STK-MED ONE Stop: 09/30/17 10:01 Ondansetron HCl (Zofran) Confirm Administered Dose 4 mg .ROUTE .STK-MED ONE Stop: 09/30/17 10:01 Propofol (Diprivan 20 Ml) Confirm Administered Dose 200 mg .ROUTE .STK-MED ONE Stop: 09/30/17 10:01 Rocuronium [place] (Zemuron) Confirm Administered Dose 50 mg .ROUTE .STK-MED ONE Stop: 09/30/17 10:01 - Exam Quality Assessment: Reports: DVT Prophylaxis General: Reports: Alert, Oriented, Cooperative, No Acute Distress Lungs: Reports: Clear to Auscultation, Normal Respiratory Effort Cardiovascular: Reports: Regular Rate, Regular Rhythm GI/Abdominal Exam: Normal Bowel Sounds, Soft, Non-Tender, No Organomegaly, No Distention, No Abnormal Bruit, No Mass, Pelvis Stable Back Exam: Reports: Normal Inspection, Full Range of Motion Extremities: Normal Inspection, Normal Range of Motion Skin: Reports: Warm, Dry, Intact Neurological: Reports: No New Focal Deficit Psy/Mental Status: Reports: Alert, Normal Affect, Normal Mood *Q Meaningful Use (DIS) - VTE *Q VTE Criteria *Q: - Stroke *Q Stroke Criteria *Q: - AMI *Q AMI Criteria *Q:
--- NOTE | 2017-10-04 08:55 | OR ---
DATE OF PROCEDURE: 09/30/2017 PREOPERATIVE DIAGNOSIS: Serrated adenoma in appendiceal stump status post appendectomy. POSTOPERATIVE DIAGNOSIS: Serrated adenoma in appendiceal stump status post appendectomy. PROCEDURE: Laparoscopic cecectomy. SURGEON: Vazquez Hand MD. ANESTHESIA: General endotracheal. INDICATION: In May of this year, this 72-year-old white female underwent a laparoscopic appendectomy for acute perforated appendicitis. Pathology returned a serrated adenoma at the margin of the appendiceal stump. Followup colonoscopy later showed the cecum appeared unremarkable. No obvious polyps extending out of the appendix into the orifice. She then is scheduled at this time for a laparoscopic cecectomy. I counseled her for the procedure including risks and alternatives, and she gave her informed consent to proceed. DESCRIPTION OF PROCEDURE: After adequate general endotracheal anesthesia was obtained, a Man catheter was placed, and her abdomen was prepped and draped in the usual sterile fashion. Time-out was held. The leg compression stockings were in place and used during the entire procedure. An infraumbilical semicircular incision was made. Under direct vision, a 12 mm port was introduced into the abdomen through this incision. The camera was introduced into the abdomen and the abdomen was insufflated to a pressure of 20 mmHg with carbon dioxide. No evidence of intraabdominal injury was seen. Under direct vision, 12 mm ports were placed in the right upper and left lower quadrants. Adhesions were encountered, which were sharply dissected free. The cecum was then mobilized up by taking down the peritoneal reflection. The staple line from her appendectomy was seen. The cecum was then excised using the endoscopic TESS with blue loads. The prior staple line was removed and included within the specimen. The ileocecal valve was left intact. The cecum was then placed in a sample retrieval bag and elevated up through the anterior abdominal wall via the right upper quadrant port site. It was opened off the field. The right upper quadrant port was re-introduced back into the abdomen. The right lower quadrant was irrigated and suctioned dry. All looked well. The fascial closure device was used to place 0 Vicryl stitches in the right upper and left lower quadrant fascial defects. After they were both placed, they were tied down. The infraumbilical port was then removed with an interrupted stitch of 0 Vicryl used to close this fascial defect. Before tying the stitch down, we evacuated as much carbon dioxide from the abdomen as we could. The stitch was then tied down. Lidocaine 1% with epinephrine in a 50:50 mix with 0.5% Marcaine was infiltrated about all incisions. 4-0 Vicryl using a subcuticular stitch was placed to approximate the skin of the incisions. Dermabond was applied. The anesthesia was reversed. She was extubated and brought to the recovery room in good condition. Vazquez Hand MD /[id number] MTDD
== END 2017-10-01 09:44 | disposition home or self-care (01) | DRG 331 ==
LOC: JP.SDS 08:07 → JP.MS 08:30 → EDSTATUS 08:30 → JP.MS 11:15 → UNDOADMIN 11:15 → UNDODISIN 10-01 09:44
PROVIDERS: ADMIT Surgery; ATTEND Surgery
PROC: 0DBH4ZZ Excision of Cecum, Percutaneous Endoscopic Approach (ICD-10-PCS; principal; 2017-09-30)
DX: D12.0 Benign neoplasm of cecum (principal); D12.1 Benign neoplasm of appendix
CPT/HCPCS: 36415; 80048; 85027; 88305; A9270-GY; C9113; J1100; J2405; J2543; J2704; J2710; J3010; J7042; J7120

== ENCOUNTER 2020-02-01 06:28 | Day surgery (SDC) | payer BC, MEDICARE ==
[2020-02-01] MEDS ORDERED: Dextrose 5%-Lactated Ringers 1,000 ML IV SCH (07:00)
[2020-02-01] MEDS ORDERED: Propofol 200 MG/20 ML SDV ONE (07:08)
[2020-02-01] MEDS ORDERED: Midazolam 1 MG/ML 2 ML SDV ONE (07:08)
[2020-02-01] MEDS ORDERED: fentaNYL 100 MCG/2 ML SDV ONE (07:08)
[2020-02-01] MEDS ORDERED: Albuterol/Ipratropium 3.0-0.5 MG/3 ML Neb Soln NEB ONE (07:15)
[2020-02-01] MEDS ORDERED: Bupivacaine 0.5% 50 ML MDV ONE (08:08)
[2020-02-01] MEDS ORDERED: Lidocaine 1% with EPINEPHrine 1:100,000 50 ML MDV ONE (08:08)
[2020-02-01] MEDS ORDERED: Lidocaine 1% 50 ML MDV ONE (08:08)
[2020-02-01] MEDS ORDERED: Bacitracin Oint 1 GM U/D Packet ONE (08:09)
[2020-02-01] MEDS ORDERED: ceFAZolin 2 GM in Premix Bag 1 BAG IV ONE (08:30)
[2020-02-01] MEDS ORDERED: Dexamethasone 4 MG/ML SDV ONE (08:35)
[2020-02-01] MEDS ORDERED: Ondansetron 4 MG/2 ML SDV ONE (08:35)
[2020-02-01 10:52] VITALS: BP 120/70; PULSE 64
--- NOTE | 2020-02-10 12:27 | OR ---
DATE OF PROCEDURE: 02/01/2020 SURGEON: Huy Messer MD PREOPERATIVE DIAGNOSIS: Atypical skin lesion, left side of the nose. POSTOPERATIVE DIAGNOSIS: Atypical skin lesion, left side of the nose. OPERATIVE PROCEDURE: Excision of atypical skin lesion, left side of the nose with layered closure (20192, [id number]). ANESTHESIA: Local plus IV sedation. INDICATIONS FOR PROCEDURE: This is a 74-year-old female presenting with a slightly ulcerated lesion on the left side of her nose. This would be consistent with either actinic keratosis versus squamous cell carcinoma. Plan is to proceed with excision. Potential risks including bleeding, infection, positive margins or recurrence of lesion, some cosmetic deformity were all reviewed, and the patient wishes to proceed. DETAILS OF PROCEDURE: The patient was taken to the operating room and placed in a supine position. IV sedation was administered after the nose and surrounding areas were prepped and draped. The area was then anesthetized with 1% lidocaine mixed with Marcaine all through the long axis of lesion which was roughly in line with the general skin crease configuration. An elliptical incision was made and carried down through the skin and subcutaneous tissue. The lesion was then excised and delivered from the field. The lesion plus margin length was 1.1 cm. The incision was closed with some 6-0 Vicryl stitch deep and then a 6-0 Prolene skin stitch. Incision length was 2.1 cm. The patient was taken to the recovery room in satisfactory condition. There were no evident complications. Huy Messer MD /[id number]
== END 2020-02-01 11:22 | disposition home or self-care (01) ==
LOC: JP.SDS 06:28
PROVIDERS: ATTEND Surgery
DX: L57.0 Actinic keratosis (principal); I10 Essential (primary) hypertension; E11.9 Type 2 diabetes mellitus without complications
CPT/HCPCS: 11442; 12051; 88305; 94640; J0690; J1100; J2250; J2405; J2704; J3010; J3490; J7121; J2001; J7620-GY

== ENCOUNTER 2021-03-27 16:04 | Emergency (ER) | payer OTHER, MEDICARE ==
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
[2021-03-27 16:57] VITALS: PULSE 102
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
[2021-03-27] MEDS ORDERED: LORazepam 1 MG Tab PO ONE (18:08)
[2021-03-27 18:18] VITALS: BP 156/91
== END 2021-03-27 19:45 | disposition other institution (70) ==
LOC: JP.ED 16:04
DX: S22.22XA Fracture of body of sternum, initial encounter for closed fracture (principal); S01.511A Laceration without foreign body of lip, initial encounter; S50.11XA Contusion of right forearm, initial encounter; E78.00 Pure hypercholesterolemia, unspecified; I10 Essential (primary) hypertension; Z79.82 Long term (current) use of aspirin; Z79.899 Other long term (current) drug therapy; Z88.0 Allergy status to penicillin; Z88.1 Allergy status to other antibiotic agents; Z88.2 Allergy status to sulfonamides; Z88.4 Allergy status to anesthetic agent; Z88.8 Allergy status to other drugs, medicaments and biological substances; Z88.5 Allergy status to narcotic agent; V49.40XA Driver injured in collision with unspecified motor vehicles in traffic accident, initial encounter
CPT/HCPCS: 36415; 70450; 71250; 72125; 74176; 80053; 85025; 99285; A9270

== ENCOUNTER 2022-09-21 06:47 | Day surgery (SDC) | payer MEDICARE ==
[2022-09-21] MEDS ORDERED: Lactated Ringers 1,000 ML IV SCH (07:15)
[2022-09-21] MEDS ORDERED: Ondansetron 4 MG/2 ML SDV ONE (07:26)
[2022-09-21] MEDS ORDERED: Propofol 200 MG/20 ML SDV ONE (07:26)
[2022-09-21 09:19] VITALS: BP 151/73; PULSE 70
== END 2022-09-21 09:21 | disposition home or self-care (01) ==
LOC: JP.SDS 06:47
PROVIDERS: ATTEND Family Medicine
DX: Z12.11 Encounter for screening for malignant neoplasm of colon (principal); K64.4 Residual hemorrhoidal skin tags; K64.8 Other hemorrhoids; K57.30 Diverticulosis of large intestine without perforation or abscess without bleeding; I10 Essential (primary) hypertension; E78.5 Hyperlipidemia, unspecified; K21.9 Gastro-esophageal reflux disease without esophagitis; Z86.010 Personal history of colon polyps; Z98.890 Other specified postprocedural states; Z79.899 Other long term (current) drug therapy; Z88.0 Allergy status to penicillin; Z88.2 Allergy status to sulfonamides; Z88.6 Allergy status to analgesic agent; Z88.5 Allergy status to narcotic agent; Z88.8 Allergy status to other drugs, medicaments and biological substances
CPT/HCPCS: G0105; J2405; J2704; J7120

== ENCOUNTER 2024-11-02 06:32 | Day surgery (SDC) | payer MEDICARE ==
[2024-11-02] MEDS ORDERED: Ondansetron 4 MG/2 ML SDV ONE (07:12)
[2024-11-02] MEDS ORDERED: fentaNYL 50 MCG/ML SDV ONE (07:12)
[2024-11-02] MEDS ORDERED: Propofol 200 MG/20 ML SDV ONE ×2 (07:12→07:51)
[2024-11-02] MEDS: Lactated Ringers 1,000 ML IV SCH (08:48)
[2024-11-02 10:33] VITALS: BP 132/68; PULSE 69
== END 2024-11-02 11:28 | disposition home or self-care (01) ==
LOC: JP.SDS 06:32
PROVIDERS: ATTEND Family Medicine
DX: R19.7 Diarrhea, unspecified (principal); I12.9 Hypertensive chronic kidney disease with stage 1 through stage 4 chronic kidney disease, or unspecified chronic kidney disease; N18.30 Chronic kidney disease, stage 3 unspecified; E78.5 Hyperlipidemia, unspecified; Z86.0100 Personal history of colon polyps, unspecified
CPT/HCPCS: 00811; 45380; 88305; J2405; J2704; J3010; J7120